=== PATIENT | female | born 1960 | race Two or more races ===

== ENCOUNTER 2019-05-21 08:36 | Outpatient (CLI) | payer OTHER | END 2019-05-21 08:42 | disposition home or self-care (01) | LOC: SONOGRAMA 08:36 | DX: E04.1 Nontoxic single thyroid nodule (principal) ==

== ENCOUNTER 2021-01-22 10:14 | Outpatient (CLI) | payer OTHER | END 2021-01-22 10:18 | disposition home or self-care (01) | LOC: SONOGRAMA 10:14 | PROVIDERS: ATTEND Pathology Anatomic Pathology & Clinical Pathology | DX: E04.2 Nontoxic multinodular goiter (principal) ==

== ENCOUNTER 2021-07-20 08:59 | Outpatient (CLI) | payer OTHER | END 2021-07-20 09:07 | disposition home or self-care (01) | LOC: SONOGRAMA 08:59 | PROVIDERS: ATTEND Pathology Anatomic Pathology & Clinical Pathology | DX: E04.2 Nontoxic multinodular goiter (principal) ==

== ENCOUNTER 2022-07-29 08:03 | Outpatient (CLI) | payer OTHER | END 2022-07-29 08:05 | disposition home or self-care (01) | LOC: SONOGRAMA 08:03 | PROVIDERS: ATTEND Pathology Anatomic Pathology & Clinical Pathology | DX: E04.2 Nontoxic multinodular goiter (principal); D34 Benign neoplasm of thyroid gland; E04.1 Nontoxic single thyroid nodule ==